=== PATIENT | female | born 1950 | race Caucasian/White ===

== ENCOUNTER → 2017-11-16 | Outpatient (CLI) | payer OTHER ==
--- NOTE | 2017-11-17 06:12 | PAP/PSG TECHNICIAN REPORT ---
[facility] Zipper Joiner Polysomnogram Report Study name: None Report date: 11/17/2017 Study date: 11/16/2017 Referring Physician: ANNE Hernandez Name: GUALBERTO JOHN Interpreting Physician: Juan Miguel Astudillo M.D. Date of : 1950 Zipper Joiner: Sis Joseph [facility]. Sex: Female Age: 67 StudyType: PSG Weight: 220 lbs Height: 67 years, Height 5' 2" BMI: 40.23 Medications: Omeprazole 20 mg, Lisinopril 5 mg, Insulin Pen, Atorvastatin 80 mg, Insulin 100 units, Victoza, Metformin Albuterol Patient History 67 yr. old female here for an updated titration sleep study. Patients read out showed 1:43 hours of desats on a pressure of 11 CmH20 on room air. Test is to be started at current pressure and titrate oxygen per Medicare guidelines. Parameters Monitored NPSG: E1-M2, E2-M1, Fp1-M2, Fp2-M1, F3-M2, F4-M2, F4-M1, C3-M2, C4-M2, C4-M1, O1-M2, O2-M2, O2-M1, T3-M2, T4-M1, P3-M2, P4-M1, CHIN1, CHIN2, HR, EKG, Legs, PFLOW, SNOR, FLOW, CFLOW, Tidal Volume, THOR, ABDO, SpO2, PLTH, CPRESS, ETCO2 Wave, ETCO2, pH Sleep Architecture Sleep Stages Time at Lights Off 9:44:30 PM STAGES Time (min.) TST (%) Time at Lights On 5:46:30 AM Wake 43.0 -- Total Recording Time (TRT) 482.00 min. N1 34.0 8 Total Sleep Period (TSP) 464.0 min. N2 239.5 55 Total Sleep Time (TST) 439.0min. N3 74.0 17 Awake Time 43.0 min. REM 91.5 21 Wake after Sleep Onset 27.0 min. Sleep Efficiency (SE) 91 % Sleep Onset Latency (HARJIT) 16.0 min. Number of Stage 1 Shifts None Awakenings 16 Stage Changes 99 Number of REM periods 6 REM 91.5 21 REM Latency 115.5 min. NREM 347.5 79 Body Position Analysis Supine Right Left Side Prone Vertical Total Sleep Time (min.) 117.4 0.0 358.0 357.99 0.0 0.1 Total Sleep Time (%) 18% 0% 82% 82 0% N/A% Total Sleep Time REM (min.) 0.0 0.0 91.5 None 0.0 0.0 Total Sleep Time NREM (min.) 81.0 0.0 266.5 None 0.0 0.0 Intermittent Wake (min.) 36.4 0.0 6.5 None 0.0 0.1 Total Sleep Period (%) 22% None None None None None Arousals Myoclonus (PLM) * Events Count Index Events Count Index Spontaneous 6 1 Events Awake (PLMW) 42 58.6 Respiratory 1 0.1 Events Asleep w/ Arousal (PLMA) 38 5.2 PLM 37 5 Events Asleep w/o Arousal (PLMS) 85 11.6 Snoring 16 2 Total Asleep 123 16.8 Total 60 8 Total 165 21 Respiratory Analysis * CA OA MA CH H RERA Total Count 5 0 0 0 41 0 46 Index 0.7 0.0 0.0 0 5.6 0 6.3 Mean Duration 11.5 0.0 0.0 0.00 21.0 0.0 20.0 Longest Duration 15.5 0.0 0.0 0.00 0.0 0.0 48.7 Respiratory Event Summary Total Supine ~Supine Right Left Prone REM NREM Apneas Count 5 4 1 N/A 1 N/A 1 4 Index 0.7 3 0 N/A 0.2 N/A 1 1 Hypopneas (4% Desat) Count 41 28 13 N/A 13 N/A 9 32 Index 5.6 20.7 2 N/A 2.2 N/A 5.9 5.5 Apneas & All Hypopneas Count 46 32 14 N/A 14 N/A 10 36 Index 6.3 24 2 N/A 2 N/A 6.6 6.2 Respiratory Events (It Architect+All Hyp+RERA) Count 46 32 14 N/A 14 N/A 10 36 Index 6.3 24 2 N/A 2.3 N/A 6.6 6.2 Respiratory Related Arousal Count 1 32 1 N/A 1 N/A 0 1 Index 0.1 0 0 N/A 0 N/A 0 0 Snoring Analysis Supine Right Left Prone REM NREM Total Snore duration 3.0 min Snores count 8 N/A 57 N/A 10 55 65 Snore mean duration 2.8 Sec Snores index 6 N/A 10 N/A 6.6 9.5 8.9 TST with snoring (%) 0.7% Desaturation Event Summary: Minimum %SpO2 Event Count Mean/Min/Max Duration(sec.) Desaturation Index % Time In Bed > 90 53 22.5 / 7.0 / 60.0 8.6 77.0 86 - 90 30 17.0 / 6.0 / 38.0 16.5 22.7 81 - 85 0 N/A 0.0 0.3 76 - 80 0 N/A 0.0 0.0 71 - 75 0 N/A 0.0 0.0 66 - 70 0 N/A 0.0 0.0 61 - 65 0 N/A 0.0 0.0 56 - 60 0 N/A 0.0 0.0 51 - 55 0 N/A 0.0 0.0 < 50 0 N/A 0.0 0.0 Total REM NREM Awake <50% 0.0 min. 0.0 min. 0.0 min. 0.0 min. 51 - 60% 0.0 min. 0.0 min. 0.0 min. 0.0 min. 61 - 70% 0.0 min. 0.0 min. 0.0 min. 0.0 min. 71 - 80% 0.0 min. 0.0 min. 0.0 min. 0.0 min. 81 - 90% 110.8 min. 31.9 min. 60.8 min. 18.1 min. 91 - 100% 371.2 min. 59.7 min. 286.7 min. 24.9 min. Average 92 91 92 91 Minimum SpO2 83 83 84 86 Desaturation Event Index 7.6 9.8 6.9 14.0 # Desat. Events below 89% 43 11 27 5 Time(%) with Saturation below 89% 5.5 2.1 2.2 1.2 Time(min.) with Saturation below 89% 26.4 10.2 10.5 5.7 Time (mins) REM (mins) NREM (mins) % of TST SpO2 Below 90% 53 14 N39 11.1 SpO2 Below 88% 12 0 0 3 Heart Rate Analysis Min (bpm) Max (bpm) Average (bpm) Awake 64 87 77 NREM 56 92 67 REM 51 81 67 Overall 51 92 67 Supplemental O2 Values Minimum O2 level: None Value Start Time End Time Zipper Joiner Comments MS. John slept in the supine and left positions. No cardiac arrhythmia. PLMs noted. No bruxism noted. CPAP was initiated at +8 CMH2O quickly increased to +11 CMH20 per order and up-titrated to a level of +[id number] Flex 1 with 1 lpm oxygen. At 3:48 MS. John was on a pressure of +14 for 215.7 minutes, and an AHI of 2.0 and was under 89% for 6.6 minutes. A Mirage FX nasal mask was used during titration. MS. John did not wake to use the restroom during the night. MS. John stated, I had a good night once I got to sleep. The final report will be interpreted and signed by a sleep physician. The completed physician report will then be placed in the patient medical record. Therapy Event: Therapy (cm H20) 8 11 12 13 14 Total Time at Pressure (min.) 35.6 26.7 38.6 40.4 340.7 TST at Pressure (min.) 12.5 14.3 38.6 39.4 334.2 # Periods 1 1 1 1 1 Sleep Onset (min.) 16.0 8.9 0.0 0.0 0.0 REM Onset (min.) N/A N/A N/A 30.6 0.0 Sleep Efficiency % 35 53 100 97 98 Wakefulness (%) 64.9 46.5 0.0 2.5 1.9 Wakefulness (min.) 23.1 12.4 0.0 1.0 6.5 NREM 1 (%) 25.3 16.9 1.3 9.9 4.7 NREM 1 (min.) 9.0 4.5 0.5 4.0 16.0 NREM 2 (%) 9.8 36.7 61.1 64.7 51.8 NREM 2 (min.) 3.5 9.8 23.6 26.1 176.5 NREM 3 (%) 0.0 0.0 37.6 0.0 17.5 NREM 3 (min.) 0.0 0.0 14.5 0.0 59.5 REM (%) 0.0 0.0 0.0 23.0 24.1 REM (min.) 0.0 0.0 0.0 9.3 82.2 # Arousals 1 0 6 13 40 Arousal Index 4.8 0.0 9.3 19.8 7.2 # Snore 1 0 3 15 46 Snore Index 4.8 0.0 4.7 22.8 8.3 AHI 14.4 71.4 10.9 18.3 1.3 AHI Supine 14.4 71.4 10.9 19.2 N/A AHI Non-Supine N/A N/A N/A 17.7 1.3 NREM AHI 14.4 71.4 10.9 17.9 0.0 REM AHI N/A N/A N/A 19.4 5.1 RDI 14.4 71.4 10.9 18.3 1.3 # Obstructive 0 0 0 0 0 # Central Ap 0 4 0 0 1 # Mixed 0 0 0 0 0 # Hypopneas 3 13 7 12 6 RERAS 0 0 0 0 0 Total Respiratory Events 3 17 7 12 7 Time Below SpO2 89.00% (min.) 5.4 4.0 0.9 3.7 6.7 Mean NREM SpO2 (%) 89 90 90 91 92 Mean REM SpO2 (%) N/A N/A N/A 89 91 Mean Sleep SpO2 (%) 89 90 90 91 92 Min NREM SpO2 (%) 86 84 86 87 89 Min REM SpO2 (%) N/A N/A N/A 83 85 Position Supine (min.) 12.5 14.3 38.6 15.6 0.0 Position Non-supine (min.) 0.0 0.0 0.0 23.8 334.2 LM Index Sleep 14.4 12.6 29.5 28.9 14.2 LM Index NREM 14.4 12.6 29.5 31.9 16.2 LM Index REM N/A N/A N/A 19.4 8.0 Mean Heart Rate (bpm) 79 77 75 71 65 Min Heart Rate (bpm) 74 71 63 60 51
--- NOTE | 2017-11-18 19:46 | POLYSOMNOGRAPH REPORT ---
CLINICAL DATA: A 67-year-old female with BMI of 40.23, referred by ANNE Richards, for an updated CPAP titration study. Overnight pulse oximetry showed 1 hour and 43 minutes of desaturation on 11 cm of water CPAP. SLEEP ARCHITECTURE: Total sleep period was 464 minutes. Total sleep time was 439 minutes divided between 347.5 minutes of non-REM sleep and 91.5 minutes of REM sleep. Sleep latency was 16 minutes. REM latency was 115.5 minutes. Sleep efficiency was 91%. Wake after sleep onset was 27 minutes. Sleep consisted of stage N1 8%, stage N2 55%, stage N3 17% and REM 21%. AROUSAL DATA: 60 arousals were recorded for an index of 8 per hour. PERIODIC LIMB MOVEMENT DATA: 123 limb movements during sleep were noted for an index of 16.8 per hour with arousal index of 5.2 per hour. RESPIRATORY DATA: AHI was 6.3. There were 5 central apneic episodes. The longest apneic episode was 15.5 seconds. There were 41 hypopneic episodes with mean duration of 21 seconds. OXIMETRY DATA: Nocturnal hypoxemia was seen. Oxygen heber was 83% during REM. Mean saturation was 92%. Time below 88% was 12 minutes. EKG: Heart rates ranged from 56-92 beats per minute. No arrhythmias were noted. COMMUNICATIONS SCIENTIST'S COMMENTS: The patient was started on CPAP at 8 cm water pressure and was quickly titrated up to 11 cm water pressure. She had to be uptitrated to 14 cm of water pressure. At 14 cm of water pressure, she slept for 334 minutes with an AHI of 1.3. She used the Mirage FX nasal mask. In general, her oxygenation improved with CPAP 14 cm of water pressure. However, at 14 cm of water pressure, she did have hypoxemia which required oxygen. IMPRESSION: Obstructive sleep apnea corrected with CPAP 14 cm of water pressure, C-Flex setting #1, Mirage FX nasal mask. Because of persistent hypoxemia, the patient had oxygen 1 liter per minute added with correction of her hypoxemia. RECOMMENDATIONS: The patient's CPAP should be increased to 14 cm of water pressure. Oxygen 1 liter per minute should be added to her regimen. MTDD
== END | disposition home or self-care (01) ==
LOC: C.NEUR 21:00
PROVIDERS: ATTEND Nurse Practitioner Family
DX: G47.33 Obstructive sleep apnea (adult) (pediatric) (principal); G47.34 Idiopathic sleep related nonobstructive alveolar hypoventilation